=== PATIENT | female | born 1975 | race Caucasian/White ===

== ENCOUNTER 2017-03-08 09:37 | Inpatient (IN) | payer BC ==
[~2017-03-08] VITALS: Ht 162.6 cm; Wt 64.9 kg
[2017-03-08 10:44] VITALS: Ht 162.6 cm; Wt 64.9 kg
[2017-03-08 10:47] VITALS: BP 103/61; PULSE 59; RESP 16
[2017-03-08] MEDS ORDERED: LACTATED RINGER'S 1,000 ML IV* SCH (11:00)
[2017-03-08] MEDS ORDERED: CEFAZOLIN 2 GM/50 ML (PMX) 50 ML IVPB ONE (11:00)
[2017-03-08] MEDS ORDERED: SURGIFOAM POWDER 1 GM KIT ONE ×2 (11:43→13:23)
[2017-03-08] MEDS ORDERED: CEFAZOLIN 1 GM INJ ONE ×2 (11:43→15:46)
[2017-03-08] MEDS ORDERED: THROMBIN 5000 UNIT VIAL ONE ×2 (11:44→13:23)
[2017-03-08] MEDS ORDERED: HEPARIN 1000 UNITS/ML 10 ML INJ ONE ×2 (11:44→13:27)
[2017-03-08] MEDS ORDERED: CA CHLORIDE 10% 10 ML SYRINGE ONE (11:44)
[2017-03-08] MEDS ORDERED: BUPIVACAINE 0.5%/EPI (SDV) 30 ML INJ ONE (11:45)
[2017-03-08] MEDS: D5W-0.45 NACL + KCL 20 MEQ 1,000 ML IV SCH ×2 (11:55→23:34)
--- NOTE | 2017-03-08 11:55 | HPN ---
Date/Time of Note Date/Time of Note DATE: 03/08/17 TIME: 11:55 Interval H&P Admission Note Pt. seen H&P reviewed: No system changes NATALIE MEDRANO MD Mar 08, 2017 11:55
[2017-03-08] MEDS ORDERED: DIPHENHYDRAMINE 50 MG INJ IV PRN ×2 (12:00→12:30)
[2017-03-08] MEDS ORDERED: BISACODYL 10 MG SUPP PR PRN (12:00)
[2017-03-08] MEDS ORDERED: CYCLOBENZAPRINE 10 MG TAB PO PRN (12:00)
[2017-03-08] MEDS ORDERED: DIPHENHYDRAMINE 25 MG CAP PO PRN (12:00)
[2017-03-08] MEDS ORDERED: ACETAMINOPHEN 325 MG TAB PO PRN (12:00)
[2017-03-08] MEDS ORDERED: AL HYDROX/MG HYDROX/SIMETH 30 ML CUP PO PRN (12:00)
[2017-03-08] MEDS ORDERED: NALOXONE (0.4 MG/ML) INJ IV PRN (12:00)
[2017-03-08] MEDS ORDERED: CEPASTAT LOZENGE MT PRN (12:00)
[2017-03-08] MEDS ORDERED: HYDROmorphONE 0.2 MG/ML PCA IV SCH (12:00)
[2017-03-08] MEDS ORDERED: HYDROmorphONE 0.5 MG/0.5 ML SYG IV PRN (12:00)
[2017-03-08] MEDS ORDERED: ONDANSETRON 4 MG INJ IV PRN ×2 (12:00→12:30)
[2017-03-08] MEDS ORDERED: ROCURONIUM 50 MG INJ ONE (12:08)
[2017-03-08] MEDS ORDERED: PROPOFOL 20 ML ONE (12:08)
[2017-03-08] MEDS ORDERED: morphine 10 MG INJ ONE (12:10)
[2017-03-08] MEDS ORDERED: MIDAZOLAM 1 MG/ML 2 ML INJ IV PRN (12:30)
[2017-03-08] MEDS ORDERED: MEPERIDINE 25 MG INJ IV PRN (12:30)
[2017-03-08] MEDS ORDERED: hydrALAzine 20 MG INJ IV PRN (12:30)
[2017-03-08] MEDS ORDERED: FENTAnyl 50 MCG/ML VIAL IV PRN ×3 (12:30)
[2017-03-08] MEDS ORDERED: LABETALOL HCL 20MG INJ IV PRN (12:30)
[2017-03-08] MEDS ORDERED: METOCLOPRAMIDE 10 MG INJ IV PRN (12:30)
[2017-03-08] MEDS ORDERED: EPHEDrine SULFATE 50 MG/5 ML SYG IV PRN (12:30)
[2017-03-08] MEDS ORDERED: HYDROmorphONE (0.2 MG/ML) 10ML SYG IV PRN ×3 (12:30)
[2017-03-08] MEDS ORDERED: KETOROLAC 30 MG INJ IV PRN (12:30)
[2017-03-08] MEDS ORDERED: FENTAnyl 50 MCG/ML VIAL ONE (13:09)
[2017-03-08] MEDS ORDERED: GELATIN SIZE 100 SPONGE ONE (13:23)
--- NOTE | 2017-03-08 14:35 | SIPON ---
Date/Time of Note Date/Time of Note DATE: 03/08/17 TIME: 14:34 Operative Report Preoperative Diagnosis L5-S1 isthmic spondy Postoperative Diagnosis L5-S1 isthmic spondy Operation/Procedure Performed L5-S1 AP fusion Surgeon see signature line rn first assist co-surgeon - Jorge Anesthesia: general Estimated blood loss: 50 - 100 ml's Transfusion Required none Specimen L5-S1 disk Grafts/Implants cage and screws Complications none NATALIE MEDRANO MD Mar 08, 2017 14:35
--- NOTE | 2017-03-08 14:35 | SIPON ---
Date/Time of Note Date/Time of Note DATE: 03/08/17 TIME: 14:34 Operative Report Preoperative Diagnosis L5-S1 isthmic spondy Postoperative Diagnosis L5-S1 isthmic spondy Operation/Procedure Performed L5-S1 AP fusion Surgeon see signature line kennel assistant co-surgeon - Jorge Anesthesia: general Estimated blood loss: 50 - 100 ml's Transfusion Required none Specimen L5-S1 disk Grafts/Implants cage and screws Complications none NATALIE MEDRANO MD Mar 08, 2017 14:35
--- NOTE | 2017-03-08 14:35 | SIPON ---
Date/Time of Note Date/Time of Note DATE: 03/08/17 TIME: 14:34 Operative Report Preoperative Diagnosis L5-S1 isthmic spondy Postoperative Diagnosis L5-S1 isthmic spondy Operation/Procedure Performed L5-S1 AP fusion Surgeon see signature line nurseryman assistant co-surgeon - Jorge Anesthesia: general Estimated blood loss: 50 - 100 ml's Transfusion Required none Specimen L5-S1 disk Grafts/Implants cage and screws Complications none NATALIE MEDRANO MD Mar 08, 2017 14:35
[2017-03-08] MEDS ORDERED: DEXAMETHASONE 4 MG/ML 1 ML INJ ONE (14:56)
[2017-03-08] MEDS ORDERED: ONDANSETRON 4 MG INJ ONE (15:45)
[2017-03-08] MEDS ORDERED: LIDOCAINE 2% (SDV) 5 ML INJ ONE (15:46)
--- NOTE | 2017-03-08 15:59 | OPR ---
DATE OF OPERATION: 03/08/2017 PREOPERATIVE DIAGNOSIS: Grade I unstable isthmic spondylolisthesis at L5-S1 with radiculopathy. POSTOPERATIVE DIAGNOSIS: Grade I unstable isthmic spondylolisthesis at L5-S1 with radiculopathy. PROCEDURE: 1. Anterior lumbar interbody fusion at L5-S1. 2. Placement of intervertebral biomechanical device at L5-S1. 3. Anterior hardware at L5-S1. 4. Use of allograft. 5. Left iliac crest bone marrow aspiration. 6. Application of NuShield device. 7. Use of C-arm fluoroscopy with interpretation without radiologist present. 8. Intraoperative neuromonitoring (1 hour 15 minutes). IMPLANTS: 1. Renovis Tesera standalone 13 mm height, 12 degree lordosis, 38 x 30 mm footprint with 25 mm ante rior screws and plate. 2. Fibergraft matrix. PRIMARY SURGEON: James Carmona MD COSURGEON: La Patel MD NEED FOR COSURGEON: Cosurgeon was required in order to retract the neurovascular elements. ESTIMATED BLOOD LOSS: 50 mL. DRAINS: None. SPECIMENS: L5-S1 disk. COMPLICATIONS OF PROCEDURES: None. ANESTHESIOLOGIST: Dr. Tay TYPE OF ANESTHESIA: General. INDICATIONS FOR PROCEDURE: This is a 41-year-old female with a grade 1 isthmic spondylolisthesis at L5-S1 which is unstable. She had back pain with radiculopathy in the setting of stenosis. She sharon led nonoperative measures, therefore, I recommended proceeding with the above-mentioned surgery. Pr eoperatively, we discussed risks, benefits and alternatives. She understood and wished to proceed. DESCRIPTION OF PROCEDURE IN DETAIL: The patient was identified in the preoperative holding area, [facility] in the operating room, where she was successfully placed under general anesthe charlette. Neuromonitoring leads were placed. Sequential compressive devices were applied. Herrera cathet er was introduced. Arterial line was attempted in the radial artery, but this was unsuccessful bila terally, and then a left femoral artery line was placed by Dr. Patel. The patient's abdomen was then prepped and draped in usual sterile fashion. Neuromonitoring was utilized during this stage o f the procedure for 1 hour and 15 minutes to include SSEP, MEP and EMG. This was performed by [employer]. Start time was 1:15, closure time was 2:30 p.m. After prepping the abdomen, a small n ick was made just 2 cm lateral to the left ASIS. Jamshidi needles were then placed into the iliac c rest, and iliac bone marrow aspiration was performed. I then closed this incision with a 4-[address] Patel then performed an anterior approach to the lumbar spine. He made an incis ion anteriorly and then accessed the spine through retroperitoneal left-sided approach. He will dic iqbal the approach separately. Once the anterior spine was identified, I placed a bent spinal needle and took AP and lateral images and confirmed the correct levels. Once this was confirmed, annuloto my was made, followed by radical diskectomy using curettes, Kerrison punches, pituitary rongeurs and a Oneal elevator. I prepared the endplates and used a rasp to decorticate the bone. I then placed various trials and chose the appropriate graft height. I then took the titanium cage within which I placed allograft and I impacted the intervertebral biomechanical device into the L5-S1 level to com plete the anterior lumbar interbody fusion. I confirmed placement with the C-arm fluoroscope. I th en placed anterior screws and plates using 25 mm screws. Once this was done, the wound was irrigate d. The NuShield device was applied and the wound was closed in layers. Dr. Patel will dictate the approach and the closure to the spine. Four quadrant abdominal x-rays were obtained, there was no evidence of retained foreign bodies. Sterile dressings then applied. The patient will then be f lipped to stage II, which will be dictated separately. FINDINGS: Neuromonitoring throughout the case revealed left L5 and S1 amplitude down 40% and right L5 amplitude down 50%. At the end of the case, nerve signals returned to normal. The patient had a n unstable listhesis at L5-S1. Dictated By: JAMES CARMONA MD BB/DALTON Conf#: [id number] DID#: [id number] CC: LA PATEL MD;*EndCC*
[2017-03-08 16:00] VITALS: BP 120/62; PULSE 91; RESP 17
--- NOTE | 2017-03-08 17:15 | RADRPT ---
PROCEDURE: Intraoperative imaging of the lumbar spine with fluoroscopy. CLINICAL INDICATION: Back pain. Intraoperative. TECHNIQUE: 15 images of the lumbar spine were obtained in the operating room with an image intensi fier. No radiologist was in attendance. Fluoroscopy time is 97 seconds. COMPARISON: No prior study is available for comparison. FINDINGS: For the purposes of this report, the last apparent true disc level is considered to be L5-S1. Based on this, the images demonstrate anterior and posterior fusion at L5-S1. IMPRESSION: 1. Intraoperative imaging of the lumbar spine. RPTAT: QQ .Gigi Francois MD, Date Time Electronically viewed and signed by .Gigi Francois MD, on 03/08/2017 16:45 .R/
--- NOTE | 2017-03-08 18:52 | RADRPT ---
PROCEDURE: Intraoperative imaging of the lumbar spine with fluoroscopy. CLINICAL INDICATION: Back pain. Intraoperative. TECHNIQUE: Images of the lumbar spine were obtained in the operating room with an image intensifie r. No radiologist was in attendance. Fluoroscopy time is 19 seconds and a single frontal image was obtained. COMPARISON: Intraoperative imaging done earlier the same day. FINDINGS: For the purposes of this report, the last apparent true disc level is considered to be L5-S1. Based on this, surgical devices are present at L5-S1. IMPRESSION: 1. Intraoperative imaging of the lumbar spine. RPTAT: QQ .Gigi Francois MD, MD Date Time Electronically viewed and signed by .Gigi Francois MD, on 03/08/2017 16:49 .R/
[2017-03-08 20:00] VITALS: BP 120/62; RESP 18
[2017-03-08] MEDS: CEFAZOLIN 1 GM/50 ML (PMX) 50 ML IVPB SCH ×2 (20:00→21:15)
[2017-03-08] MEDS: DOCUSATE SODIUM 100 MG CAP PO SCH (21:00)
--- NOTE | 2017-03-08 22:42 | HP ---
Date/Time of Note Date/Time of Note DATE: 03/08/17 TIME: 22:39 Assessment/Plan VTE Prophylaxis VTE Prophylaxis Intervention: SCD's Lines/Catheters IV Catheter Type (from Nrs): Peripheral IV Urinary Cath still in place: Yes (arrived from PACU w/ vasquez catheter) Reason Cath still needed: urinary retention Assessment/Plan Problems: (1) Status post lumbar and lumbosacral fusion by anterior technique Status: Acute Comment: She is seen immediately postop. She was not on any medications as an outpatient outside of as needed pain relievers. Continue her care with eyes toward rehabilitation. HPI/ROS Admit Date/Time Admit Date/Time Mar 08, 2017 at 09:37 Hx of Present Illness 41-year-old female with a long-term back injury after several incidents all doing equestrian sports. At this time she is seen postoperatively. Preop H&P was done by her regular physician. ROS Constitutional: no complaints Eyes: no complaints ENT: no complaints Respiratory: no complaints Cardiovascular: no complaints Gastrointestinal: no complaints Genitourinary: no complaints Musculoskeletal: back pain Skin: no complaints Endocrine: no complaints PMH/Family/Social Past Medical History Medical History: other (Spinal stenosis.) Past Surgical History Past Surgical Hx: noncontributory Family History Significant Family History: no pertinent family hx Social History Born in [place] and raised there. 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 Alcohol Use: occasionally Smoking Status: Current every day smoker Drug Use: none Exam/Review of Systems Vital Signs Vitals Vital Signs Date Time Temp Pulse Resp B/P Pulse Ox O2 Delivery O2 Flow Rate FiO2 03/08/17 20:00 97.5 76 18 120/62 99 03/08/17 16:00 Nasal Cannula 2.0 Exam Constitutional: alert Psych: nl mood/affect, no complaints Head: atraumatic, normocephalic Eyes: EOMI, PERRL, nl conjunctiva, nl lids, nl sclera Neck: non-tender, supple Respiratory: clear to auscultation, normal air movement Cardiovascular: nl pulses, regular rate and rhythm Gastrointestinal: nl liver, spleen, non-tender, soft (Cyst) Extremities: normal pulses Neurological: GARLAND MACHINE OPERATOR II-XII intact, nl mental status, nl speech, nl strength Medications Medications Current Medications Potassium Chloride/Dextrose/ Sod Cl (D5-1/2ns + KCl 20 Meq) 1,000 ml @ 100 mls/ hr Q10H IV ; Start 03/08/17 at 11:55 Acetaminophen/ Hydrocodone Bitart ([place] (325)) 1 tab Q4H PRN PO PAIN LEVEL 1-5; Start 03/10/17 at 13:00 Acetaminophen/ Hydrocodone Bitart ([place] (325)) 2 tab Q4H PRN PO PAIN LEVEL 6-10; Start 03/10/17 at 13:00 Hydromorphone HCl 0.2 mg 0.2 mg Q1H PRN IV BREAKTHROUGH PAIN; Start 03/08/17 at 12:00 Cefazolin Sodium (Ancef 1 Gm/50 ml (Pmx)) 50 ml @ 100 mls/hr Q8H IVPB Last administered on 03/08/17t 21:15; Admin Dose 100 MLS/HR; Start 03/08/17 at 12:00 ; Stop 03/09/17 at 04:29 Ondansetron HCl (Zofran Inj) 4 mg Q6H PRN IV NAUSEA AND/OR VOMITING; Start 03/08/17 at 12:00 Bisacodyl (Dulcolax Supp) 10 mg DAILY PRN [place] CONSTIPATION; Start 03/08/17 at 12 :00 Docusate Sodium (Colace) 100 mg BID PO ; Start 03/08/17 at 21:00 Pantoprazole (Protonix Iv) 40 mg DAILY@06 IV ; Start 03/09/17 at 06:00 Al Hydrox/Mg Hydrox/Simethicone (Mag-Al Plus) 15 ml Q6H PRN PO CONSTIPATION/ DYSPEPSIA; Start 03/08/17 at 12:00 Acetaminophen (Tylenol Tab) 650 mg Q4H PRN PO DOHERTY OR TEMP GREATER THAN 101.3F; Start 03/08/17 at 12:00 Cyclobenzaprine HCl (Flexeril) 10 mg TID PRN PO MUSCLE SPASMS; Start 03/08/17 at 12:00 Phenol (Cepastat Lozenge) 1 lozenge PRN PRN [place] SORE THROAT; Start 03/08/17 at 12:00 Diphenhydramine HCl (Benadryl) 25 mg Q6H PRN PO ITCHING; Start 03/08/17 at 12: 00 Diphenhydramine HCl (Benadryl) 25 mg Q6H PRN IV ITCHING; Start 03/08/17 at 12: 00 Naloxone HCl (Narcan) 0.2 mg Q2M PRN IV RR 8 BREATHS/MIN OR LESS; Start at 12:00 Miscellaneous Information 1. Hold FOLDED CLOTH TAPER at 1,000... FOLDED CLOTH TAPER IV ; Start 03/08/17 at 12: 00; Stop 03/10/17 at 13:00 Acetaminophen/ Hydrocodone Bitart ([place] (10/325)) 2 tab ONCE ONCE PO ; Start 03/10/17 at 09:30; Stop 03/10/17 at 09:31 DIOGO MOHR MD Mar 08, 2017 22:42
--- NOTE | 2017-03-08 22:42 | HP ---
Date/Time of Note Date/Time of Note DATE: 03/08/17 TIME: 22:39 Assessment/Plan VTE Prophylaxis VTE Prophylaxis Intervention: SCD's Lines/Catheters IV Catheter Type (from Nrs): Peripheral IV Urinary Cath still in place: Yes (arrived from PACU w/ vasquez catheter) Reason Cath still needed: urinary retention Assessment/Plan Problems: (1) Status post lumbar and lumbosacral fusion by anterior technique Status: Acute Comment: She is seen immediately postop. She was not on any medications as an outpatient outside of as needed pain relievers. Continue her care with eyes toward rehabilitation. HPI/ROS Admit Date/Time Admit Date/Time Mar 08, 2017 at 09:37 Hx of Present Illness 41-year-old female with a long-term back injury after several incidents all doing equestrian sports. At this time she is seen postoperatively. Preop H&P was done by her regular physician. ROS Constitutional: no complaints Eyes: no complaints ENT: no complaints Respiratory: no complaints Cardiovascular: no complaints Gastrointestinal: no complaints Genitourinary: no complaints Musculoskeletal: back pain Skin: no complaints Endocrine: no complaints PMH/Family/Social Past Medical History Medical History: other (Spinal stenosis.) Past Surgical History Past Surgical Hx: noncontributory Family History Significant Family History: no pertinent family hx Social History Born in [place] and raised there. 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 Alcohol Use: occasionally Smoking Status: Current every day smoker Drug Use: none Exam/Review of Systems Vital Signs Vitals Vital Signs Date Time Temp Pulse Resp B/P Pulse Ox O2 Delivery O2 Flow Rate FiO2 03/08/17 20:00 97.5 76 18 120/62 99 03/08/17 16:00 Nasal Cannula 2.0 Exam Constitutional: alert Psych: nl mood/affect, no complaints Head: atraumatic, normocephalic Eyes: EOMI, PERRL, nl conjunctiva, nl lids, nl sclera Neck: non-tender, supple Respiratory: clear to auscultation, normal air movement Cardiovascular: nl pulses, regular rate and rhythm Gastrointestinal: nl liver, spleen, non-tender, soft (Cyst) Extremities: normal pulses Neurological: THERAPIST SPEECH II-XII intact, nl mental status, nl speech, nl strength Medications Medications Current Medications Potassium Chloride/Dextrose/ Sod Cl (D5-1/2ns + KCl 20 Meq) 1,000 ml @ 100 mls/ hr Q10H IV ; Start 03/08/17 at 11:55 Acetaminophen/ Hydrocodone Bitart ([place] (325)) 1 tab Q4H PRN PO PAIN LEVEL 1-5; Start 03/10/17 at 13:00 Acetaminophen/ Hydrocodone Bitart ([place] (325)) 2 tab Q4H PRN PO PAIN LEVEL 6-10; Start 03/10/17 at 13:00 Hydromorphone HCl 0.2 mg 0.2 mg Q1H PRN IV BREAKTHROUGH PAIN; Start 03/08/17 at 12:00 Cefazolin Sodium (Ancef 1 Gm/50 ml (Pmx)) 50 ml @ 100 mls/hr Q8H IVPB Last administered on 03/08/17t 21:15; Admin Dose 100 MLS/HR; Start 03/08/17 at 12:00 ; Stop 03/09/17 at 04:29 Ondansetron HCl (Zofran Inj) 4 mg Q6H PRN IV NAUSEA AND/OR VOMITING; Start 03/08/17 at 12:00 Bisacodyl (Dulcolax Supp) 10 mg DAILY PRN [place] CONSTIPATION; Start 03/08/17 at 12 :00 Docusate Sodium (Colace) 100 mg BID PO ; Start 03/08/17 at 21:00 Pantoprazole (Protonix Iv) 40 mg DAILY@06 IV ; Start 03/09/17 at 06:00 Al Hydrox/Mg Hydrox/Simethicone (Mag-Al Plus) 15 ml Q6H PRN PO CONSTIPATION/ DYSPEPSIA; Start 03/08/17 at 12:00 Acetaminophen (Tylenol Tab) 650 mg Q4H PRN PO DOHERTY OR TEMP GREATER THAN 101.3F; Start 03/08/17 at 12:00 Cyclobenzaprine HCl (Flexeril) 10 mg TID PRN PO MUSCLE SPASMS; Start 03/08/17 at 12:00 Phenol (Cepastat Lozenge) 1 lozenge PRN PRN MT SORE THROAT; Start 03/08/17 at 12:00 Diphenhydramine HCl (Benadryl) 25 mg Q6H PRN PO ITCHING; Start 03/08/17 at 12: 00 Diphenhydramine HCl (Benadryl) 25 mg Q6H PRN IV ITCHING; Start 03/08/17 at 12: 00 Naloxone HCl (Narcan) 0.2 mg Q2M PRN IV RR 8 BREATHS/MIN OR LESS; Start at 12:00 Miscellaneous Information 1. Hold WET SUIT GLUER at 1,000... WET SUIT GLUER IV ; Start 03/08/17 at 12: 00; Stop 03/10/17 at 13:00 Acetaminophen/ Hydrocodone Bitart ([place] (10/325)) 2 tab ONCE ONCE PO ; Start 03/10/17 at 09:30; Stop 03/10/17 at 09:31 DIOGO MOHR MD Mar 08, 2017 22:42
--- NOTE | 2017-03-08 22:42 | HP ---
Date/Time of Note Date/Time of Note DATE: 03/08/17 TIME: 22:39 Assessment/Plan VTE Prophylaxis VTE Prophylaxis Intervention: SCD's Lines/Catheters IV Catheter Type (from Nrs): Peripheral IV Urinary Cath still in place: Yes (arrived from PACU w/ vasquez catheter) Reason Cath still needed: urinary retention Assessment/Plan Problems: (1) Status post lumbar and lumbosacral fusion by anterior technique Status: Acute Comment: She is seen immediately postop. She was not on any medications as an outpatient outside of as needed pain relievers. Continue her care with eyes toward rehabilitation. HPI/ROS Admit Date/Time Admit Date/Time Mar 08, 2017 at 09:37 Hx of Present Illness 41-year-old female with a long-term back injury after several incidents all doing equestrian sports. At this time she is seen postoperatively. Preop H&P was done by her regular physician. ROS Constitutional: no complaints Eyes: no complaints ENT: no complaints Respiratory: no complaints Cardiovascular: no complaints Gastrointestinal: no complaints Genitourinary: no complaints Musculoskeletal: back pain Skin: no complaints Endocrine: no complaints PMH/Family/Social Past Medical History Medical History: other (Spinal stenosis.) Past Surgical History Past Surgical Hx: noncontributory Family History Significant Family History: no pertinent family hx Social History Born in [place] and raised there. 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 Alcohol Use: occasionally Smoking Status: Current every day smoker Drug Use: none Exam/Review of Systems Vital Signs Vitals Vital Signs Date Time Temp Pulse Resp B/P Pulse Ox O2 Delivery O2 Flow Rate FiO2 03/08/17 20:00 97.5 76 18 120/62 99 03/08/17 16:00 Nasal Cannula 2.0 Exam Constitutional: alert Psych: nl mood/affect, no complaints Head: atraumatic, normocephalic Eyes: EOMI, PERRL, nl conjunctiva, nl lids, nl sclera Neck: non-tender, supple Respiratory: clear to auscultation, normal air movement Cardiovascular: nl pulses, regular rate and rhythm Gastrointestinal: nl liver, spleen, non-tender, soft (Cyst) Extremities: normal pulses Neurological: TANK HOOP BENDER II-XII intact, nl mental status, nl speech, nl strength Medications Medications Current Medications Potassium Chloride/Dextrose/ Sod Cl (D5-1/2ns + KCl 20 Meq) 1,000 ml @ 100 mls/ hr Q10H IV ; Start 03/08/17 at 11:55 Acetaminophen/ Hydrocodone Bitart ([place] (325)) 1 tab Q4H PRN PO PAIN LEVEL 1-5; Start 03/10/17 at 13:00 Acetaminophen/ Hydrocodone Bitart ([place] (325)) 2 tab Q4H PRN PO PAIN LEVEL 6-10; Start 03/10/17 at 13:00 Hydromorphone HCl 0.2 mg 0.2 mg Q1H PRN IV BREAKTHROUGH PAIN; Start 03/08/17 at 12:00 Cefazolin Sodium (Ancef 1 Gm/50 ml (Pmx)) 50 ml @ 100 mls/hr Q8H IVPB Last administered on 03/08/17t 21:15; Admin Dose 100 MLS/HR; Start 03/08/17 at 12:00 ; Stop 03/09/17 at 04:29 Ondansetron HCl (Zofran Inj) 4 mg Q6H PRN IV NAUSEA AND/OR VOMITING; Start 03/08/17 at 12:00 Bisacodyl (Dulcolax Supp) 10 mg DAILY PRN [place] CONSTIPATION; Start 03/08/17 at 12 :00 Docusate Sodium (Colace) 100 mg BID PO ; Start 03/08/17 at 21:00 Pantoprazole (Protonix Iv) 40 mg DAILY@06 IV ; Start 03/09/17 at 06:00 Al Hydrox/Mg Hydrox/Simethicone (Mag-Al Plus) 15 ml Q6H PRN PO CONSTIPATION/ DYSPEPSIA; Start 03/08/17 at 12:00 Acetaminophen (Tylenol Tab) 650 mg Q4H PRN PO DOHERTY OR TEMP GREATER THAN 101.3F; Start 03/08/17 at 12:00 Cyclobenzaprine HCl (Flexeril) 10 mg TID PRN PO MUSCLE SPASMS; Start 03/08/17 at 12:00 Phenol (Cepastat Lozenge) 1 lozenge PRN PRN [place] SORE THROAT; Start 03/08/17 at 12:00 Diphenhydramine HCl (Benadryl) 25 mg Q6H PRN PO ITCHING; Start 03/08/17 at 12: 00 Diphenhydramine HCl (Benadryl) 25 mg Q6H PRN IV ITCHING; Start 03/08/17 at 12: 00 Naloxone HCl (Narcan) 0.2 mg Q2M PRN IV RR 8 BREATHS/MIN OR LESS; Start at 12:00 Miscellaneous Information 1. Hold ELECTRIC LOCOMOTIVE FIRER/FIREMAN at 1,000... ELECTRIC LOCOMOTIVE FIRER/FIREMAN IV ; Start 03/08/17 at 12: 00; Stop 03/10/17 at 13:00 Acetaminophen/ Hydrocodone Bitart ([place] (10/325)) 2 tab ONCE ONCE PO ; Start 03/10/17 at 09:30; Stop 03/10/17 at 09:31 DIOGO MOHR MD Mar 08, 2017 22:42
[2017-03-08 23:49] VITALS: BP 96/55; RESP 18
--- NOTE | 2017-03-09 03:29 | OPR ---
DATE OF OPERATION: 03/08/2017 PREOPERATIVE DIAGNOSIS: L5-S1 isthmic spondylolisthesis, status post anterior lumbar interbody fusi on. POSTOPERATIVE DIAGNOSIS: L5-S1 isthmic spondylolisthesis, status post anterior lumbar interbody fus ion. OPERATION PERFORMED: 1. Pedicle screw placement bilaterally at L5 and S1. 2. Posterolateral fusion at L5-S1. 3. Use of allograft. 4. Intraoperative neuromonitoring (1 hour). 5. Use of C-arm fluoroscopy with interpretation without radiologist present. PRIMARY SURGEON: James Carmona MD SPORTS EQUIPMENT SUPERVISOR: None. IMPLANTS: 1. Zavation 6.5 x 40 mm pedicle screws bilaterally. 2. Fibergraft matrix. FINDINGS: Neuromonitoring starting and at the end the case were normal. ESTIMATED BLOOD LOSS: 30 mL. DRAINS: None. SPECIMENS: None. COMPLICATIONS OF PROCEDURES: None. ANESTHESIOLOGIST: Dr. Tay TYPE OF ANESTHESIA: General. INDICATIONS FOR PROCEDURE: This is a 41-year-old female with an isthmic spondylolisthesis at L5-S1. She completed stage I procedure which was dictated separately. This was the anterior lumbar inter body fusion at L5-S1. This portion is dictated separately. She now presents for stage II posterior approach. DESCRIPTION OF PROCEDURE IN DETAIL: Stage I surgery was completed and dictated separately. The pat ient was placed in prone position over Moisés frame. All bony prominences were well padded. Neuromonitoring was utilized during this stage for 1 hour to include SSEP, MEP and EMG. This was pe rformed by [employer]. Start time was 2:45, closure time was 3:45 p.m. The back was prepped and draped in the usual sterile fashion. I made incisions over the L5-S1 level bilaterally. These were parasagittal incisions. I then incised the dorsal fascia. I then placed Jamshidi needles into the L5 and S1 pedicles bilaterally. Once the Jamshidi's were in place, I passed a guidewire and th en placed appropriate sized pedicle screws. I stimulated each of the screws and there was no eviden ce of cortical breach. I then placed the 40 mm rods bilaterally with set screws placed and tightene d per manufacture specifications. Once this was done, I took final AP and lateral images, and I was happy with placement of the hardware and alignment of the spine. The nerve signals remained normal . I then irrigated the wound. I prepared the posterolateral gutter and placed allograft posterolat erally for posterolateral fusion at L5-S1. Once this was done, I closed deep fascia with a #1 Vicry l stitch. I closed subcutaneous tissue with 2-0 Vicryl stitch. I made sure that the tattoo margins were straight. I then placed Dermabond. The patient was then awakened from anesthesia and taken t o recovery room in stable condition. Lap, sponge and instrument counts were correct x2. There were no apparent complications during the procedure. The patient will be admitted to the [facility] for routine postoperative care to include pain c ontrol, neurovascular checks, antibiotics and physical therapy. Dictated By: JAMES SHEPPARD/DALTON Conf#: [id number] DID#: [id number]
[2017-03-09] MEDS: CEFAZOLIN 1 GM/50 ML (PMX) 50 ML IVPB SCH (04:28)
[2017-03-09] MEDS ORDERED: PANTOPRAZOLE 40 MG INJ IV SCH (06:00)
[2017-03-09] MEDS: D5W-0.45 NACL + KCL 20 MEQ 1,000 ML IV SCH ×4 (07:55→21:00)
[2017-03-09 08:00] VITALS: BP 105/56; RESP 17
[2017-03-09] MEDS: DOCUSATE SODIUM 100 MG CAP PO SCH ×2 (08:30→21:03)
[2017-03-09] MEDS: HYDROmorphONE 0.2 MG/ML PCA IV SCH (10:54)
--- NOTE | 2017-03-09 11:14 | PN ---
Date/Time of Note Date/Time of Note DATE: 03/09/17 TIME: 11:13 Assessment/Plan Lines/Catheters IV Catheter Type (from Nrsg): Peripheral IV Vasquez in Place (from Nrsg): Yes (arrived from PACU w/ vasquez catheter) Assessment/Plan Assessment/Plan Postoperative day 1 status post fusion. Doing well. Continue routine care Subjective 24 Hr Interval Summary Leg pain improved Exam/Review of Systems Vital Signs Vitals Vital Signs Date Time Temp Pulse Resp B/P Pulse Ox O2 Delivery O2 Flow Rate FiO2 03/09/17 08:00 97.9 61 17 105/56 100 03/08/17 16:00 Nasal Cannula 2.0 Intake and Output 03/08/17 03/08/17 03/09/17 15:00 23:00 07:00 Intake Total 1150 ml 1850 ml Output Total 220 ml 1800 ml Balance 930 ml 50 ml Exam Free Text/Dictation Neuro intact Results Result Diagram: 03/09/17 0443 03/09/17 0443 NATALIE MEDRANO MD Mar 09, 2017 11:14
[2017-03-09 13:15] VITALS: BP 107/62; PULSE 65; RESP 18
[2017-03-09 14:00] VITALS: BP 110/65; RESP 18
[2017-03-09] MEDS ORDERED: SOD CHLORIDE 0.9% 100 ML ONE (15:30)
[2017-03-09] MEDS ORDERED: IOHEXOL 100 ML ONE (15:30)
--- NOTE | 2017-03-09 15:59 | RADRPT ---
PROCEDURE: CT Pulmonary Angiogram CLINICAL INDICATION: Postop, shortness of breath TECHNIQUE: Transaxial slices were obtained throughout the chest with IV contrast and CT pulmonary angiogram was obtained. Additional sagittal and coronal MPR and 3D images were obtained.. One of kelli e of the following dose reduction techniques were utilized: -automatic exposure control.-adjustment of the mA and/or kV according to patient size. -Use of iterative reconstruction technique. Contrast: 90 cc Omnipaque 350 Radiation Dose: CTDI is 6.77 mGy. DLP is 251.44 mGy-cm. COMPARISON: None FINDINGS: Normal opacification of the mediastinal structures is seen and no intraluminal filling defects is no haroldo in the pulmonary arterial tree up to 3rd order branches to suggest pulmonary embolism. Bilateral breast implants are seen. Normal opacification of the aorta noted with no dissection seen. No signi ficant mediastinal adenopathy noted. No pericardial effusion seen. Lung windows demonstrate symmetric lung volumes. No subpleural blebs, pneumothorax, pleural effusion , parenchymal masses or interstitial nodularity seen. CT abdomen: Small pneumoperitoneum around the liver, large liver, normal spleen, distended stomach, adrenals, kidneys are seen. Normal opacification of the celiac, SMA, bilateral renal arteries noted. . IMPRESSION: Pneumoperitoneum, correlate clinically since the patient is recent postop. Fatty liver No evidence of pulmonary embolism noted. RPTAT:AAOO Physician Amanda Date Time Electronically viewed and signed by Physician Amanda on 03/09/2017 15:58 MB/
--- NOTE | 2017-03-09 18:32 | CONS ---
Date/Time of Note Date/Time of Note DATE: 03/09/17 TIME: 18:30 Assessment/Plan Assessment/Plan Problems: (1) Status post lumbar and lumbosacral fusion by anterior technique Status: Acute Comment: She is recuperating well postoperatively. I believe her hypoxemia was due to combination of inadequate air movement not using her incentive spirometer. She is improved. We will keep a careful eye on her and continue with her report rehabilitation care. Consultation Date/Type/Reason Admit Date/Time Mar 08, 2017 at 09:37 Initial Consult Date March 08, 2017 Type of Consultation: Internal medicine Reason for Consultation Postoperative assistance status post anterior and posterior lumbar spinal fusion Referring Provider: NATALIE MEDRANO MD 24 HR Interval Summary Free Text/Dictation Patient had briefly had hypoxemia today with some degree of chest consent congestion. She is otherwise without complaints Constitutional: no complaints (Denies fevers chills or sweats) Detailed Summary Eyes: no complaints ENT: no complaints Respiratory: other (Minimal left-sided chest congestion fully resolved denies shortness of breath) Cardiovascular: no complaints Gastrointestinal: no complaints Genitourinary: no complaints Musculoskeletal: no complaints Skin: no complaints Exam/Review of Systems Vital Signs Vitals Vital Signs Date Time Temp Pulse Resp B/P Pulse Ox O2 Delivery O2 Flow Rate FiO2 03/09/17 14:00 98.0 77 18 110/65 93 03/09/17 13:15 Room Air 03/08/17 16:00 2.0 Intake and Output 03/08/17 03/08/17 03/09/17 15:00 23:00 07:00 Intake Total 1150 ml 1850 ml Output Total 220 ml 1800 ml Balance 930 ml 50 ml Exam Constitutional: alert, oriented Neck: non-tender, supple Respiratory: clear to auscultation, normal air movement Cardiovascular: nl pulses, regular rate and rhythm Gastrointestinal: bowel sounds (Bowel sounds are present), nl liver, spleen, non-tender, soft Results Result Diagram: 03/09/17 0443 03/09/17 044 Results 24 hrs Laboratory Tests Test 03/09/17 04:43 03/09/17 07:11 White Blood Count 10.6 Red Blood Count 3.75 L Hemoglobin 11.7 L Hematocrit 35.8 L Mean Corpuscular Volume 95.5 Mean Corpuscular Hemoglobin 31.2 Mean Corpuscular Hemoglobin Concent 32.7 Red Cell Distribution Width 11.9 Platelet Count 180 Mean Platelet Volume 10.4 Neutrophils % 81.9 H Lymphocytes % 7.0 L Monocytes % 10.6 Eosinophils % 0.1 Basophils % 0.1 Nucleated Red Blood Cells % 0.0 Neutrophils # 8.7 H Lymphocytes # 0.8 Monocytes # 1.1 H Eosinophils # 0.0 Basophils # 0.0 Nucleated Red Blood Cells # 0.0 Sodium Level 140 Potassium Level 4.5 Chloride Level 105 Carbon Dioxide Level 32 H Anion Gap 8 Blood Urea Nitrogen 8 Creatinine 0.78 Glucose Level 145 Calcium Level 8.9 Magnesium Level 1.9 Lab Scanned Report LAB Medications Medications Current Medications Potassium Chloride/Dextrose/ Sod Cl (D5-1/2ns + KCl 20 Meq) 1,000 ml @ 100 mls/ hr Q10H IV Last administered on 03/09/17 10:16; Admin Dose 100 MLS/HR; Start 03/08/17 at 11:55 Acetaminophen/ Hydrocodone Bitart ([place] (10/325)) 1 tab Q4H PRN PO PAIN LEVEL 1-5; Start 03/10/17 at 13:00 Acetaminophen/ Hydrocodone Bitart ([place] (10/325)) 2 tab Q4H PRN PO PAIN LEVEL 6-10; Start 03/10/17 at 13:00 Hydromorphone HCl (Dilaudid) 0.2 mg Q1H PRN IV BREAKTHROUGH PAIN; Start at 12:00 Ondansetron HCl (Zofran Inj) 4 mg Q6H PRN IV NAUSEA AND/OR VOMITING; Start 03/08/17 at 12:00 Bisacodyl (Dulcolax Supp) 10 mg DAILY PRN [place] CONSTIPATION; Start 03/08/17 at 12 :00 Docusate Sodium (Colace) 100 mg BID PO Last administered on 03/09/17 08:30; Admin Dose 100 MG; Start 03/08/17 at 21:00 Al Hydrox/Mg Hydrox/Simethicone (Mag-Al Plus) 15 ml Q6H PRN PO CONSTIPATION/ DYSPEPSIA; Start 03/08/17 at 12:00 Acetaminophen (Tylenol Tab) 650 mg Q4H PRN PO DOHERTY OR TEMP GREATER THAN 101.3F; Start 03/08/17 at 12:00 Cyclobenzaprine HCl (Flexeril) 10 mg TID PRN PO MUSCLE SPASMS; Start 03/08/17 at 12:00 Phenol (Cepastat Lozenge) 1 lozenge PRN PRN [place] SORE THROAT; Start 03/08/17 at 12:00 Diphenhydramine HCl (Benadryl) 25 mg Q6H PRN PO ITCHING; Start 03/08/17 at 12: 00 Diphenhydramine HCl (Benadryl) 25 mg Q6H PRN IV ITCHING; Start 03/08/17 at 12: 00 Naloxone HCl (Narcan) 0.2 mg Q2M PRN IV RR 8 BREATHS/MIN OR LESS; Start at 12:00 Miscellaneous Information 1. Hold [employer] DEVELOPER at 1,000... [employer] DEVELOPER IV ; Start 03/08/17 at 12: 00; Stop 03/10/17 at 13:00 Acetaminophen/ Hydrocodone Bitart ([place] (10/325)) 2 tab ONCE ONCE PO ; Start 03/10/17 at 09:30; Stop 03/10/17 at 09:31 Hydromorphone HCl (Dilaudid [employer] DEVELOPER) [employer]EL[employer] to be started in PACU Q4PCA IV Last administered on 03/09/17t 10:54; Admin Dose 6 MG; Start 03/09/17 at 10:30; Stop 03/10/17 at 10:29 Pantoprazole (Protonix Tab) 40 mg DAILY@06 PO ; Start 03/10/17 at 06:00 DIOGO MOHR MD Mar 09, 2017 18:32
--- NOTE | 2017-03-09 18:32 | CONS ---
Date/Time of Note Date/Time of Note DATE: 03/09/17 TIME: 18:30 Assessment/Plan Assessment/Plan Problems: (1) Status post lumbar and lumbosacral fusion by anterior technique Status: Acute Comment: She is recuperating well postoperatively. I believe her hypoxemia was due to combination of inadequate air movement not using her incentive spirometer. She is improved. We will keep a careful eye on her and continue with her report rehabilitation care. Consultation Date/Type/Reason Admit Date/Time Mar 08, 2017 at 09:37 Initial Consult Date March 08, 2017 Type of Consultation: Internal medicine Reason for Consultation Postoperative assistance status post anterior and posterior lumbar spinal fusion Referring Provider: NATALIE MEDRANO MD 24 HR Interval Summary Free Text/Dictation Patient had briefly had hypoxemia today with some degree of chest consent congestion. She is otherwise without complaints Constitutional: no complaints (Denies fevers chills or sweats) Detailed Summary Eyes: no complaints ENT: no complaints Respiratory: other (Minimal left-sided chest congestion fully resolved denies shortness of breath) Cardiovascular: no complaints Gastrointestinal: no complaints Genitourinary: no complaints Musculoskeletal: no complaints Skin: no complaints Exam/Review of Systems Vital Signs Vitals Vital Signs Date Time Temp Pulse Resp B/P Pulse Ox O2 Delivery O2 Flow Rate FiO2 03/09/17 14:00 98.0 77 18 110/65 93 03/09/17 13:15 Room Air 03/08/17 16:00 2.0 Intake and Output 03/08/17 03/08/17 03/09/17 15:00 23:00 07:00 Intake Total 1150 ml 1850 ml Output Total 220 ml 1800 ml Balance 930 ml 50 ml Exam Constitutional: alert, oriented Neck: non-tender, supple Respiratory: clear to auscultation, normal air movement Cardiovascular: nl pulses, regular rate and rhythm Gastrointestinal: bowel sounds (Bowel sounds are present), nl liver, spleen, non-tender, soft Results Result Diagram: 03/09/17 0443 03/09/17 044 Results 24 hrs Laboratory Tests Test 03/09/17 04:43 03/09/17 07:11 White Blood Count 10.6 Red Blood Count 3.75 L Hemoglobin 11.7 L Hematocrit 35.8 L Mean Corpuscular Volume 95.5 Mean Corpuscular Hemoglobin 31.2 Mean Corpuscular Hemoglobin Concent 32.7 Red Cell Distribution Width 11.9 Platelet Count 180 Mean Platelet Volume 10.4 Neutrophils % 81.9 H Lymphocytes % 7.0 L Monocytes % 10.6 Eosinophils % 0.1 Basophils % 0.1 Nucleated Red Blood Cells % 0.0 Neutrophils # 8.7 H Lymphocytes # 0.8 Monocytes # 1.1 H Eosinophils # 0.0 Basophils # 0.0 Nucleated Red Blood Cells # 0.0 Sodium Level 140 Potassium Level 4.5 Chloride Level 105 Carbon Dioxide Level 32 H Anion Gap 8 Blood Urea Nitrogen 8 Creatinine 0.78 Glucose Level 145 Calcium Level 8.9 Magnesium Level 1.9 Lab Scanned Report LAB Medications Medications Current Medications Potassium Chloride/Dextrose/ Sod Cl (D5-1/2ns + KCl 20 Meq) 1,000 ml @ 100 mls/ hr Q10H IV Last administered on 03/09/17 10:16; Admin Dose 100 MLS/HR; Start 03/08/17 at 11:55 Acetaminophen/ Hydrocodone Bitart ([place] (10/325)) 1 tab Q4H PRN PO PAIN LEVEL 1-5; Start 03/10/17 at 13:00 Acetaminophen/ Hydrocodone Bitart ([place] (10/325)) 2 tab Q4H PRN PO PAIN LEVEL 6-10; Start 03/10/17 at 13:00 Hydromorphone HCl (Dilaudid) 0.2 mg Q1H PRN IV BREAKTHROUGH PAIN; Start at 12:00 Ondansetron HCl (Zofran Inj) 4 mg Q6H PRN IV NAUSEA AND/OR VOMITING; Start 03/08/17 at 12:00 Bisacodyl (Dulcolax Supp) 10 mg DAILY PRN [place] CONSTIPATION; Start 03/08/17 at 12 :00 Docusate Sodium (Colace) 100 mg BID PO Last administered on 03/09/17 08:30; Admin Dose 100 MG; Start 03/08/17 at 21:00 Al Hydrox/Mg Hydrox/Simethicone (Mag-Al Plus) 15 ml Q6H PRN PO CONSTIPATION/ DYSPEPSIA; Start 03/08/17 at 12:00 Acetaminophen (Tylenol Tab) 650 mg Q4H PRN PO DOHERTY OR TEMP GREATER THAN 101.3F; Start 03/08/17 at 12:00 Cyclobenzaprine HCl (Flexeril) 10 mg TID PRN PO MUSCLE SPASMS; Start 03/08/17 at 12:00 Phenol (Cepastat Lozenge) 1 lozenge PRN PRN [place] SORE THROAT; Start 03/08/17 at 12:00 Diphenhydramine HCl (Benadryl) 25 mg Q6H PRN PO ITCHING; Start 03/08/17 at 12: 00 Diphenhydramine HCl (Benadryl) 25 mg Q6H PRN IV ITCHING; Start 03/08/17 at 12: 00 Naloxone HCl (Narcan) 0.2 mg Q2M PRN IV RR 8 BREATHS/MIN OR LESS; Start at 12:00 Miscellaneous Information 1. Hold DIRECTOR OF BUSINESS OPERATIONS at 1,000... DIRECTOR OF BUSINESS OPERATIONS IV ; Start 03/08/17 at 12: 00; Stop 03/10/17 at 13:00 Acetaminophen/ Hydrocodone Bitart ([place] (10/325)) 2 tab ONCE ONCE PO ; Start 03/10/17 at 09:30; Stop 03/10/17 at 09:31 Hydromorphone HCl (Dilaudid DIRECTOR OF BUSINESS OPERATIONS) DIRECT[employer] OPERATIONS to be started in PACU Q4PCA IV Last administered on 03/09/17t 10:54; Admin Dose 6 MG; Start 03/09/17 at 10:30; Stop 03/10/17 at 10:29 Pantoprazole (Protonix Tab) 40 mg DAILY@06 PO ; Start 03/10/17 at 06:00 DIOGO MOHR MD Mar 09, 2017 18:32
--- NOTE | 2017-03-09 18:32 | CONS ---
Date/Time of Note Date/Time of Note DATE: 03/09/17 TIME: 18:30 Assessment/Plan Assessment/Plan Problems: (1) Status post lumbar and lumbosacral fusion by anterior technique Status: Acute Comment: She is recuperating well postoperatively. I believe her hypoxemia was due to combination of inadequate air movement not using her incentive spirometer. She is improved. We will keep a careful eye on her and continue with her report rehabilitation care. Consultation Date/Type/Reason Admit Date/Time Mar 08, 2017 at 09:37 Initial Consult Date March 08, 2017 Type of Consultation: Internal medicine Reason for Consultation Postoperative assistance status post anterior and posterior lumbar spinal fusion Referring Provider: NATALIE MEDRANO MD 24 HR Interval Summary Free Text/Dictation Patient had briefly had hypoxemia today with some degree of chest consent congestion. She is otherwise without complaints Constitutional: no complaints (Denies fevers chills or sweats) Detailed Summary Eyes: no complaints ENT: no complaints Respiratory: other (Minimal left-sided chest congestion fully resolved denies shortness of breath) Cardiovascular: no complaints Gastrointestinal: no complaints Genitourinary: no complaints Musculoskeletal: no complaints Skin: no complaints Exam/Review of Systems Vital Signs Vitals Vital Signs Date Time Temp Pulse Resp B/P Pulse Ox O2 Delivery O2 Flow Rate FiO2 03/09/17 14:00 98.0 77 18 110/65 93 03/09/17 13:15 Room Air 03/08/17 16:00 2.0 Intake and Output 03/08/17 03/08/17 03/09/17 15:00 23:00 07:00 Intake Total 1150 ml 1850 ml Output Total 220 ml 1800 ml Balance 930 ml 50 ml Exam Constitutional: alert, oriented Neck: non-tender, supple Respiratory: clear to auscultation, normal air movement Cardiovascular: nl pulses, regular rate and rhythm Gastrointestinal: bowel sounds (Bowel sounds are present), nl liver, spleen, non-tender, soft Results Result Diagram: 03/09/17 0443 03/09/17 044 Results 24 hrs Laboratory Tests Test 03/09/17 04:43 03/09/17 07:11 White Blood Count 10.6 Red Blood Count 3.75 L Hemoglobin 11.7 L Hematocrit 35.8 L Mean Corpuscular Volume 95.5 Mean Corpuscular Hemoglobin 31.2 Mean Corpuscular Hemoglobin Concent 32.7 Red Cell Distribution Width 11.9 Platelet Count 180 Mean Platelet Volume 10.4 Neutrophils % 81.9 H Lymphocytes % 7.0 L Monocytes % 10.6 Eosinophils % 0.1 Basophils % 0.1 Nucleated Red Blood Cells % 0.0 Neutrophils # 8.7 H Lymphocytes # 0.8 Monocytes # 1.1 H Eosinophils # 0.0 Basophils # 0.0 Nucleated Red Blood Cells # 0.0 Sodium Level 140 Potassium Level 4.5 Chloride Level 105 Carbon Dioxide Level 32 H Anion Gap 8 Blood Urea Nitrogen 8 Creatinine 0.78 Glucose Level 145 Calcium Level 8.9 Magnesium Level 1.9 Lab Scanned Report LAB Medications Medications Current Medications Potassium Chloride/Dextrose/ Sod Cl (D5-1/2ns + KCl 20 Meq) 1,000 ml @ 100 mls/ hr Q10H IV Last administered on 03/09/17 10:16; Admin Dose 100 MLS/HR; Start 03/08/17 at 11:55 Acetaminophen/ Hydrocodone Bitart ([employer] (10/325)) 1 tab Q4H PRN PO PAIN LEVEL 1-5; Start 03/10/17 at 13:00 Acetaminophen/ Hydrocodone Bitart ([employer] (10/325)) 2 tab Q4H PRN PO PAIN LEVEL 6-10; Start 03/10/17 at 13:00 Hydromorphone HCl (Dilaudid) 0.2 mg Q1H PRN IV BREAKTHROUGH PAIN; Start at 12:00 Ondansetron HCl (Zofran Inj) 4 mg Q6H PRN IV NAUSEA AND/OR VOMITING; Start 03/08/17 at 12:00 Bisacodyl (Dulcolax Supp) 10 mg DAILY PRN [place] CONSTIPATION; Start 03/08/17 at 12 :00 Docusate Sodium (Colace) 100 mg BID PO Last administered on 03/09/17 08:30; Admin Dose 100 MG; Start 03/08/17 at 21:00 Al Hydrox/Mg Hydrox/Simethicone (Mag-Al Plus) 15 ml Q6H PRN PO CONSTIPATION/ DYSPEPSIA; Start 03/08/17 at 12:00 Acetaminophen (Tylenol Tab) 650 mg Q4H PRN PO DOHERTY OR TEMP GREATER THAN 101.3F; Start 03/08/17 at 12:00 Cyclobenzaprine HCl (Flexeril) 10 mg TID PRN PO MUSCLE SPASMS; Start 03/08/17 at 12:00 Phenol (Cepastat Lozenge) 1 lozenge PRN PRN MT SORE THROAT; Start 03/08/17 at 12:00 Diphenhydramine HCl (Benadryl) 25 mg Q6H PRN PO ITCHING; Start 03/08/17 at 12: 00 Diphenhydramine HCl (Benadryl) 25 mg Q6H PRN IV ITCHING; Start 03/08/17 at 12: 00 Naloxone HCl (Narcan) 0.2 mg Q2M PRN IV RR 8 BREATHS/MIN OR LESS; Start at 12:00 Miscellaneous Information 1. Hold MUSIC EDUCATOR at 1,000... MUSIC EDUCATOR IV ; Start 03/08/17 at 12: 00; Stop 03/10/17 at 13:00 Acetaminophen/ Hydrocodone Bitart ([employer] (10/325)) 2 tab ONCE ONCE PO ; Start 03/10/17 at 09:30; Stop 03/10/17 at 09:31 Hydromorphone HCl (Dilaudid MUSIC EDUCATOR) MUSIC EDUCATOR to be started in PACU Q4PCA IV Last administered on 03/09/17t 10:54; Admin Dose 6 MG; Start 03/09/17 at 10:30; Stop 03/10/17 at 10:29 Pantoprazole (Protonix Tab) 40 mg DAILY@06 PO ; Start 03/10/17 at 06:00 DIOGO MOHR MD Mar 09, 2017 18:32
[2017-03-09 20:01] VITALS: BP 107/55; RESP 18
--- NOTE | 2017-03-09 21:15 | PN ---
Date/Time of Note Date/Time of Note DATE: 03/09/17 TIME: 21:13 Assessment/Plan Lines/Catheters IV Catheter Type (from Nrsg): Peripheral IV Vasquez in Place (from Nrsg): Yes (arrived from PACU w/ vasquez catheter) Assessment/Plan Assessment/Plan SP ALIF L5 S1 will continue supp care ambulation PT Subjective 24 Hr Interval Summary Constitutional: improved Pain Control: mild Exam/Review of Systems Vital Signs Vitals Vital Signs Date Time Temp Pulse Resp B/P Pulse Ox O2 Delivery O2 Flow Rate FiO2 03/09/17 20:01 98.0 71 18 107/55 100 03/09/17 13:15 Room Air 03/08/17 16:00 2.0 Intake and Output 03/08/17 03/08/17 03/09/17 15:00 23:00 07:00 Intake Total 1150 ml 1850 ml Output Total 220 ml 1800 ml Balance 930 ml 50 ml Exam Neck: non-tender, supple Respiratory: clear to auscultation, normal air movement Cardiovascular: nl pulses, regular rate and rhythm Results Result Diagram: 03/09/17 0443 03/09/17 0443 LA HANNA MD Mar 09, 2017 21:15
--- NOTE | 2017-03-10 00:35 | OPR ---
DATE OF OPERATION: PREOPERATIVE DIAGNOSIS: Degenerative disk disease, lumbosacral spine. POSTOPERATIVE DIAGNOSIS: Degenerative disk disease, lumbosacral spine. OPERATION PERFORMED: 1. Anterior retroperitoneal exposure and interbody fusion at lumbosacral L5-S1. 2. Left femoral arterial line placement. 3. Ultrasound guidance into the central artery. 4. Mobilization of the left common iliac artery and vein. SURGEON: La Patel MD. CO-SURGEON: James Carmona MD CONSENT: Risks, benefits, complications, alternative therapies explained to the patient and the [facility] amador, consent obtained. OPERATIVE TECHNIQUE: The patient was placed in supine position, prepped and draped in usual sterile fashion. Lidocaine 1% was used throughout the operation for local anesthesia. A time-out was call ed, antibiotic was given. I gained access in the left common femoral artery. Guidewire was advance d through without any difficulty. Subcutaneous tissues were dilated and the arterial line was advan lisa into the femoral artery, secured to skin using silk sutures. Next, patient was placed in the baum pine position, prepped and draped in usual sterile fashion. I made a 6 cm incision in the left lowe r quadrant below the umbilicus. Incision was taken down to the subcutaneous tissue which was then o pened using electrocautery. Left anterior rectus sheath was opened in the direction of the wound an d the left rectus muscle was mobilized laterally. The posterior rectus sheath was identified. It w as incised superiorly about 3 cm. Retroperitoneal space was entered. Bookwalter retractor was plac ed, retracting the bowel contents to the right and left rectus muscle to the left. I then dissected the left common iliac artery and vein, left external iliac artery and vein. Middle sacral vessels w ere ligated using titanium clips. Exposure for L5-S1 was obtained by retracting the right common il iac artery and vein to the right, left common iliac artery and vein to the left. We proceeded with diskectomy and placement of the new cage. Please refer to Dr. Carmona's dictation for the details of that operation after all the x-rays were satisfactorily read by him. Needle counts and sponge c ounts were correct. The posterior rectus sheath was closed using 0 Vicryl suture in running fashion . Anterior rectus sheath was closed using a #1 Vicryl suture in running fashion. The wound was irr igated and closed in 2 layers of 2-0 Vicryl suture for subcutaneous, and Steri-Strips for the skin. Patient tolerated procedure well. Dictated By: LA SUE/DALTON Conf#: [id number] DID#: [id number]
[2017-03-10 02:49] VITALS: BP 112/53; RESP 18
[2017-03-10] MEDS: HYDROmorphONE 0.2 MG/ML PCA IV SCH (03:21)
[2017-03-10] MEDS: PANTOPRAZOLE (EC) 40 MG TAB PO SCH ×2 (05:06→09:24)
[2017-03-10] MEDS: D5W-0.45 NACL + KCL 20 MEQ 1,000 ML IV SCH ×2 (06:39→11:06)
[2017-03-10 08:04] VITALS: BP 111/52; RESP 18
[2017-03-10] MEDS: DOCUSATE SODIUM 100 MG CAP PO SCH (09:24)
[2017-03-10] MEDS ORDERED: HYDROCODONE/APAP (10/325) TAB PO ONE (09:30)
--- NOTE | 2017-03-10 12:02 | DS ---
Date/Time of Note Date/Time of Note DATE: 03/10/17 TIME: 12:00 Discharge Summary Admission/Discharge Info Admit Date/Time Mar 08, 2017 at 09:37 Discharge Date/Time mar 10 Discharge Diagnosis lumbar fusion Patient Condition: Good Procedures L5-S1 fusion Hx of Present Illness back and leg pain Hospital Course pt was admitted to [facility] after undergoing a lumbar fusion. by post op day 2 she was deemed stable for d/c with f/u arranged Primary Care Provider Not On Staff Doctor Pending Labs Laboratory Tests Test 03/10/17 04:26 White Blood Count 9.210^3/ul (4.8-10.8) Red Blood Count 3.2310^6/ul (4.20-5.40) Hemoglobin 10.1g/dl (12.0-16.0) Hematocrit 30.8% (37.0-47.0) Mean Corpuscular Volume 95.4fl (82.0-101.0) Mean Corpuscular Hemoglobin 31.3pg (29.0-33.0) Mean Corpuscular Hemoglobin Concent 32.8g/dl (32.0-37.0) Red Cell Distribution Width 12.1% (11.5-14.5) Platelet Count 44771^3/UL (140-415) Mean Platelet Volume 11.1fl (7.4-10.4) Neutrophils % 73.7% (39.0-77.0) Lymphocytes % 13.4% (15.0-51.0) Monocytes % 10.4% (0.0-11.0) Eosinophils % 2.0% (0.0-7.0) Basophils % 0.2% (0.0-2.0) Nucleated Red Blood Cells % 0.0/100WBC (0.0-0.0) Neutrophils # 6.810^3/ul (1.6-7.5) Lymphocytes # 1.210^3/ul (0.8-2.9) Monocytes # 1.010^3/ul (0.3-0.9) Eosinophils # 0.210^3/ul (0.0-0.5) Basophils # 0.010^3/ul (0.0-0.1) Nucleated Red Blood Cells # 0.010^3/ul (0.0-0.0) Sodium Level 138mmol/L (135-144) Potassium Level 4.0mmol/L (3.5-5.1) Chloride Level 105mmol/L (97-110) Carbon Dioxide Level 27mmol/L (21-31) Anion Gap 10 (8-16) Blood Urea Nitrogen 5mg/dl (7-20) Creatinine 0.76mg/dl (0.44-1.00) Glucose Level 100mg/dl (70-220) Calcium Level 8.0mg/dl (8.4-10.2) Magnesium Level 1.7mg/dl (1.7-2.5) NATALIE MEDRANO MD Mar 10, 2017 12:02
[2017-03-10] MEDS ORDERED: HYDROCODONE/APAP (10/325) TAB PO PRN ×2 (13:00)
--- NOTE | 2017-03-10 15:17 | RADRPT ---
PROCEDURE: XR Abdomen. CLINICAL INDICATION: Abdomen pain. TECHNIQUE: Two views. AP supine and AP erect. COMPARISON: Intraoperative imaging of the lumbar spine dated 03/08/2017. FINDINGS: There is no free air. The bowel gas pattern is normal. There is no evidence of obstruction. There are no abnormal calcifications overlying the urinary tracts. As seen previously, there is a fusion at L5-S1 with pedicle screws, connecting rods, and anterior sc rews. IMPRESSION: 1. Prior fusion at L5-S1. 2. Otherwise unremarkable abdomen radiographs. RPTAT: QQ .Gigi Francois MD, MD Date Time Electronically viewed and signed by .Gigi Francois MD, MD on 03/10/2017 15:17 .R/
== END 2017-03-10 14:41 | disposition home or self-care (01) | DRG 455 ==
LOC: REC 09:37 → MS1 19:30
PROVIDERS: ADMIT Specialist; ATTEND Specialist
PROC: 0SG30K1 Fusion of Lumbosacral Joint with Nonautologous Tissue Substitute, Posterior Approach, Posterior Column, Open Approach (ICD-10-PCS; 2017-03-08)
PROC: 0ST40ZZ Resection of Lumbosacral Disc, Open Approach (ICD-10-PCS; 2017-03-08)
PROC: 07DR3ZZ Extraction of Iliac Bone Marrow, Percutaneous Approach (ICD-10-PCS; 2017-03-08)
PROC: 0SG30A0 Fusion of Lumbosacral Joint with Interbody Fusion Device, Anterior Approach, Anterior Column, Open Approach (ICD-10-PCS; principal; 2017-03-08 12:00)
DX: M51.17 Intervertebral disc disorders with radiculopathy, lumbosacral region (principal); M47.27 Other spondylosis with radiculopathy, lumbosacral region; M53.2X7 Spinal instabilities, lumbosacral region; M43.17 Spondylolisthesis, lumbosacral region
CPT/HCPCS: 71275; 72020; 72114; 74010; 80048; 83735; 84703; 85025; 86850; 86900; 86901; 86920; 86999; 97116; 97162; C9113; J0690; J1100; J1170; J1200; J1644; J2175; J2250; J2270; J2405; J3010; J3480; Q9967; V2790